=== PATIENT | male | born 1990 | race Caucasian/White ===

== ENCOUNTER 2018-06-10 11:51 | Emergency (ER) | payer SELFPAY ==
[2018-06-10 12:16] VITALS: BP 112/62; PULSE 70; TEMP 98.8; BMI 22.8
[2018-06-10] MEDS ORDERED: KETOROLAC TROMETHAMINE 60 MG/2 ML VIAL IM ONE (12:53)
--- NOTE | 2018-06-10 12:57 | PDOC ---
History of Present Illness - General Chief Complaint: Back Pain Stated Complaint: BACK PAIN Time Seen by Provider: 06/10/18 12:21 History Source: Patient Exam Limitations: No Limitations - History of Present Illness Initial Comments: 06/10/18 13:01 Patient is a 27-year-old male with past medical history of a herniated disc, who presents to emergency department today for upper back pain. Patient states his pain started 3 days ago. He denies any injury, fall. 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 Denies fevers, chills, abdominal pain, difficulty breathing, nausea, vomiting, frequency, urgency, hematuria, saddle anesthesia, bladder bowel incontinence. Past History - Travel Traveled outside of the country in the last 30 days: No Close contact w/someone who was outside of country & ill: No - Past Medical History Allergies/Adverse Reactions: Allergies Allergy/AdvReac Type Severity Reaction Status Date / Time No Known Allergies Allergy Verified 06/10/18 12:13 Home Medications: Ambulatory Orders Ibuprofen 800 mg PO TID #30 tablet 06/10/18 Naproxen [Naprosyn] 500 mg PO ASDIR 06/10/18 COPD: No Other medical history: disc derangement back - Immunization History Immunization Up to Date: Yes - Suicide/Smoking/Psychosocial Hx Smoking History: Never smoked Hx Alcohol Use: No Review of Systems - Review of Systems Able to Perform ROS?: Yes Comments:: 06/10/18 13:02 CONSTITUTIONAL: Absent: fever, chills, diaphoresis, generalized weakness, malaise, loss of appetite HEENT: Absent: rhinorrhea, nasal congestion, throat pain, throat swelling, difficulty swallowing, mouth swelling, ear pain, eye pain, visual Changes CARDIOVASCULAR: Absent: chest pain, loss of consciousness, palpitations, irregular heart rate, peripheral edema RESPIRATORY: Absent: cough, shortness of breath, dyspnea with exertion, orthopnea, wheezing, stridor, hemoptysis GASTROINTESTINAL: Absent: abdominal pain, abdominal distension, nausea, vomiting, diarrhea, constipation, melena, hematochezia GENITOURINARY: Absent: dysuria, frequency, urgency, hesitancy, hematuria, flank pain, genital pain MUSCULOSKELETAL: Present: upper back pain Absent: myalgia, arthralgia, joint swelling SKIN: Absent: rash, itching, pallor HEMATOLOGIC/IMMUNOLOGIC: Absent: easy bleeding, easy bruising, lymphadenopathy, frequent infections ENDOCRINE: Absent: unexplained weight gain, unexplained weight loss, heat intolerance, cold intolerance NEUROLOGIC: Absent: headache, focal weakness or paresthesias, dizziness, unsteady gait, seizure, mental status changes, bladder or bowel incontinence PSYCHIATRIC: Absent: anxiety, depression, suicidal or homicidal ideation, hallucinations. Is the patient limited Gabonese proficient: No *Physical Exam - Vital Signs Last Vital Signs Temp Pulse Resp BP Pulse Ox 98.8 F 70 16 112/62 98 06/10/18 11:52 06/10/18 11:52 06/10/18 11:52 06/10/18 11:52 06/10/18 11:52 - Physical Exam Comments: 06/10/18 13:08 GENERAL: Well developed, well nourished. Awake and alert. No acute distress. HEENT: Normocephalic, atraumatic. PERRLA, EOMI. No conjunctival pallor. Sclera are non- icteric. Moist mucous membranes. Oropharynx is clear. NECK: Supple. Full ROM. No JVD. Carotid pulses 2+ and symmetric, without bruits. No thyromegaly. No lymphadenopathy. ABDOMINAL: Soft. Non-tender. Non-distended. No rebound or guarding. No organomegaly. Normoactive bowel sounds. MUSCULOSKELETAL TTP of the L upper back along the paraspinous muscles of T-11. Normal range of motion at all joints. No bony deformities or tenderness. No CVA tenderness. EXTREMITIES: No cyanosis. No clubbing. No edema. No calf tenderness. SKIN: Warm and dry. Normal capillary refill. No rashes. No jaundice. NEUROLOGICAL: Alert, awake, appropriate. Cranial nerves 2-12 intact. No deficits to light touch and temperature in face, upper extremities and lower extremities. No motor deficits in the in face, upper extremities and lower extremities. Normoreflexic in the upper and lower extremities. Normal speech. Toes are down- going bilaterally. Gait is normal without ataxia. Medical Decision Making - Medical Decision Making 06/10/18 14:39 Patient is a 27-year-old male with no past medical history who presents to emergency department today for upper back pain. On exam patient with palpable not to the left-sided paraspinous muscles along T12. Exam is otherwise benign. No CVA tenderness, neurological changes. Toradol given with relief of symptoms. We'll discharge home at this time. I discussed the physical exam findings, ancillary test results and final diagnoses with the patient. I answered all of the patient's questions. The patient was satisfied with the care received and felt comfortable with the discharge plan and treatment plan. The Patient agrees to follow up with the primary care physician/specialist within 24-72 hours. Return precautions were given. *DC/Admit/Observation/Transfer Diagnosis at time of Disposition: Upper back pain on left side - Discharge Dispostion Disposition: HOME Condition at time of disposition: Stable Decision to Admit order: No - Referrals Referrals: Daren Waldron MD [Staff Physician] - - Patient Instructions Printed Discharge Instructions: DI for Thoracic Back Pain Additional Instructions: You have low back pain due to a muscle spasm. Please take ibuprofen 800 mg 3 times a day not to exceed 3000 mg a day. Take your methocarbomal as previously prescribed by your primary care doctor. Do not drive after taking this medication as it may make you sleepy. You may use warm compresses on your back to help with her symptoms. Please follow-up with your primary care doctor. If your symptoms do not resolve in 3-5 days, follow-up with orthopedics. A referral has been provided for you. Return to the emergency department if you have worsening back pain, bladder or bowel incontinence, numbness and tingling in her legs, changes in the way you walk, or any new or worsening symptoms. - Post Discharge Activity Forms/Work/School Notes: Back to Work
[2018-06-10] MEDS ORDERED: KETOROLAC TROMETHAMINE 60 MG/2 ML VIAL ONE (12:59)
== END 2018-06-10 13:05 | disposition home or self-care (01) ==
LOC: JER 11:51 → JERFT 11:51
PROC: 3E0233Z Introduction of Anti-inflammatory into Muscle, Percutaneous Approach (ICD-10-PCS; principal; 2018-06-10)
DX: M54.6 Pain in thoracic spine (principal)
CPT/HCPCS: 99281-25

== ENCOUNTER 2018-07-13 08:09 | Emergency (ER) | payer OTHER ==
[2018-07-13 08:19] VITALS: BP 108/75; PULSE 82; TEMP 99; BMI 22.8
--- NOTE | 2018-07-13 08:45 | PDOC ---
History of Present Illness - General Chief Complaint: Wound Stated Complaint: TESTICLE PROBLEM Time Seen by Provider: 07/13/18 08:22 History Source: Patient Exam Limitations: No Limitations - History of Present Illness Initial Comments: 07/13/18 19:26 28 yr male no pmhx with abscess to the right testicle for 3 days started draining today no fever no chills. pt states it started as small pimple, possible ingrown hair. Past History - Past Medical History Allergies/Adverse Reactions: Allergies Allergy/AdvReac Type Severity Reaction Status Date / Time No Known Allergies Allergy Verified 07/13/18 08:16 Home Medications: Ambulatory Orders Cephalexin [Keflex] 250 mg PO QID #28 capsule 07/13/18 Sulfamethoxazole/Trimethoprim [Bactrim Ds -] 1 tab PO BID #14 tablet 07/13/18 COPD: No - Immunization History Immunization Up to Date: Yes - Suicide/Smoking/Psychosocial Hx Smoking History: Never smoked Hx Alcohol Use: No Drug/Substance Use Hx: No Review of Systems - Review of Systems Able to Perform ROS?: Yes Is the patient limited Gambian proficient: No Constitutional: No: Symptoms Reported : Yes: Symptoms Reported *Physical Exam - Vital Signs Last Vital Signs Temp Pulse Resp BP Pulse Ox 99.0 F 82 18 108/75 97 07/13/18 08:16 07/13/18 08:16 07/13/18 08:16 07/13/18 08:16 07/13/18 08:16 - Physical Exam General Appearance: Yes: Nourished, Appropriately Dressed HEENT: positive: EOMI, KRISTINA Neck: positive: Supple Respiratory/Chest: positive: Lungs Clear, Normal Breath Sounds Cardiovascular: positive: Regular Rhythm, Regular Rate Gastrointestinal/Abdominal: positive: Normal Bowel Sounds, Soft. negative: Tender Male Genitalia: positive: normal genitalia, other (right testicle with 1.5cm fluctuant draining abscess, neg induration, neg lymphadenopathy) Procedures - Incision and Drainage I&D Site: Right: Other (testicle) Betadine cleansed: Yes Progress: 07/13/18 19:35 pus expressed with manual expression, pt tolerated well drained well Medical Decision Making - Medical Decision Making 07/13/18 19:27 cc: abscess right testicle , drained manually no fever no chills no urinary complaints will place pt on bactrim antibacterial soap to clean strict follow up with urologist call tomorrow to make appointment return in 48hrs for wound check if unable to see urologist pt aware of the strict importance to return if worse as well as in 48hrs if unable to see urologist pt agrees with plan all questions asked and answered 07/13/18 19:29 07/13/18 19:36 *DC/Admit/Observation/Transfer Diagnosis at time of Disposition: Abscess - Discharge Dispostion Disposition: HOME - Prescriptions Prescriptions: Cephalexin [Keflex] 250 mg PO QID #28 capsule Sulfamethoxazole/Trimethoprim [Bactrim Ds -] 1 tab PO BID #14 tablet - Referrals Referrals: Ifeanyi Noriega MD., MD [Staff Physician] - - Patient Instructions Additional Instructions: call today to make a follow up appointment , tell them you were in the ER for a testicle abscess. YOU MUST RETURN TO ER FOR WOUND CHECK IN 48 HRS IF YOU ARE UNABLE TO SEE THE UROLOGIST IN THAT TIME FRAME apply frequent moist warm compresses to the area 3-4 times a day for 15-20 minutes to help drain wash with antibacterial soap and water such as Dial or Lever 2000 take the antibiotics as prescribed return sooner of fever, chills, abd pain or any worse - Post Discharge Activity Forms/Work/School Notes: Back to Work
== END 2018-07-13 09:15 | disposition home or self-care (01) ==
LOC: JERFT 08:09
DX: N45.4 Abscess of epididymis or testis (principal)
CPT/HCPCS: 99281-25